=== PATIENT | male | born 1980 | race Caucasian/White ===

== ENCOUNTER 2021-10-13 02:40 | Emergency (ER) | payer OTHER | END 2021-10-13 04:28 | disposition home or self-care (01) | LOC: FER 02:40 | DX: J34.89 Other specified disorders of nose and nasal sinuses (principal); G40.909 Epilepsy, unspecified, not intractable, without status epilepticus; F17.200 Nicotine dependence, unspecified, uncomplicated; Z88.5 Allergy status to narcotic agent; Z79.899 Other long term (current) drug therapy; W19.XXXA Unspecified fall, initial encounter; Y92.009 Unspecified place in unspecified non-institutional (private) residence as the place of occurrence of the external cause | CPT/HCPCS: 99284 ==